=== PATIENT | female | born 1965 | race Caucasian/White ===

== ENCOUNTER 2018-02-27 10:47 | Day surgery (SDC) | END 2018-02-27 15:18 | disposition home or self-care (01) ==

== ENCOUNTER 2018-06-11 11:56 | Inpatient (IN) | payer BC ==
[2018-06-08 17:28] VITALS: BMI 23.4
[~2018-06-11] VITALS: Ht 160 cm; Wt 64.2 kg
[2018-06-11] VITALS (18 sets, daily range): BP systolic 98–122; BP diastolic 42–70; PULSE 66–90; RESP 13–21; Ht 160 cm; Wt 64.2 kg
[~2018-06-11 11:56] MED LIST: FER325 PO; LIDOCAINE 2% (SDV) 5 ML INJ ONE
--- NOTE | 2018-06-11 15:13 | PREAC ---
Date/Time of Note Date/Time of Note DATE: 06/11/18 TIME: 15:12 Anesthesia Eval and Record Evaluation Time Pre-Procedure Interview DATE: 06/11/18 TIME: 15:12 Age 53 Sex female NPO: 8 hrs Preoperative diagnosis fibroids Planned procedure SHAILESH Past Medical History Past Medical History: Includes Heme: Anemia Surgery & Anesthesia Issues No known issue Meds Anticoagulation: No Beta Chandrakant within 24 hr: No Reason Beta Chandrakant not given: Pt. not on B-Chandrakant Reported Medications Ferrous Sulfate* (Ferrous Sulfate*) 325 Mg Tabec, 325 MG PO BID, TAB 02/27/18 Current Medications Influenza Virus Vaccine Quadrival (Fluzone) 0.5 ml ONCE ONCE IM* ; Start 06/13/18 at 10:00; Stop 06/13/18 at 10:01 Meds reviewed: Yes Allergies Coded Allergies: No Known Allergy (Unverified , 06/11/18) Allergies Reviewed: Yes Labs/Studies Labs Reviewed: Reviewed by anesthesiologist Result Diagram: 06/11/18 1503 Laboratory Tests 06/11/18 15:03 test: Negative Studies: ECG Pre-procedure Exam Last vitals Vital Signs Date Temp Pulse Resp B/P (MAP) Pulse Ox O2 O2 Flow FiO2 Time Delivery Rate 06/11/18 98.8 90 16 122/59 100 Room Air 14:26 (80) Airway: Adequate mouth opening, Adequate thyromental dist Mallampati: Mallampati II Teeth: Normal Lung: Normal Heart: Normal ASA Physical Status ASA physical status: 2 Emergency: None Planned Anesthetic General/MAC: ETT Neuraxial: Epidural Nerve block: TAP (bilateral) Pre-operative Attestations Prior to commencing anesthesia and surgery, the patient was re-evaluated, there was verification of: *The patient's identity *The results of appropriate recent lab work and preoperative vital signs *The above evaluation not changing prior to induction *Anesthetic plan, risk benefits, alternative and complications discussed with patient/family; questions answered; patient/family understands, accepts and wishes to proceed. ANGY MONAHAN Jun 11, 2018 15:13
[2018-06-11] MEDS ORDERED: METOCLOPRAMIDE 10 MG INJ IV PRN (15:30)
[2018-06-11] MEDS ORDERED: ONDANSETRON 4 MG INJ IV PRN ×2 (15:30→18:00)
[2018-06-11] MEDS ORDERED: FENTAnyl 50 MCG/ML VIAL IV PRN ×2 (15:30)
[2018-06-11] MEDS ORDERED: MEPERIDINE 25 MG INJ IV PRN (15:30)
[2018-06-11] MEDS ORDERED: DIPHENHYDRAMINE 50 MG INJ IV PRN ×2 (15:30→18:00)
[2018-06-11] MEDS ORDERED: HYDROmorphONE 1 MG/5 ML IV SYRINGE IV PRN ×2 (15:30)
[2018-06-11] MEDS ORDERED: ALBUTEROL 0.083% (NEB) 2.5 MG/3 ML AMP HHN PRN (15:30)
--- NOTE | 2018-06-11 15:48 | HPN ---
Date/Time of Note Date/Time of Note DATE: 06/11/18 TIME: 15:48 Interval H&P Admission Note Pt. seen H&P reviewed: No system changes ANURAG ROSEN MD Jun 11, 2018 15:48
[2018-06-11] MEDS ORDERED: ROPIVACAINE 0.5 % 30 ML VIAL ONE (15:57)
[2018-06-11] MEDS ORDERED: FENTAnyl 50 MCG/ML VIAL ONE (15:57)
[2018-06-11] MEDS ORDERED: CEFAZOLIN 1 GM INJ ONE (17:35)
[2018-06-11] MEDS ORDERED: SUCCINYLCHOLINE CHLORIDE 100 MG/5 ML SYG IV ONE (17:35)
[2018-06-11] MEDS ORDERED: NEOSTIGMINE 10 MG INJ ONE (17:35)
[2018-06-11] MEDS ORDERED: GLYCOPYRROLATE 0.4 MG INJ ONE (17:35)
[2018-06-11] MEDS ORDERED: PROPOFOL 20 ML ONE (17:35)
[2018-06-11] MEDS ORDERED: ROCURONIUM 50 MG INJ ONE (17:35)
[2018-06-11] MEDS ORDERED: ACETAMINOPHEN 325 MG TAB PO PRN (18:00)
--- NOTE | 2018-06-11 18:06 | OPR ---
Date/Time of Note Date/Time of Note DATE: 06/11/18 TIME: 18:04 Operative Report Procedure Date: Jun 11, 2018 Preoperative Diagnosis 20 week size uterus Postoperative Diagnosis Same Operation/Procedure Performed Exploratory laparotomy, SHAILESH/BSO, resection of 20 cm pelvic mass Surgeon see signature line Upsetter James Whitaker MD Anesthesia Type: general Anesthesiologist: ANGY MONAHAN Estimated Blood Loss: 200 - 250 ml's Transfusion none Specimen uterus, cervix, ovaries Grafts/Implants none Complications none Pt Condition Post Procedure: stable Disposition: PACU Procedure Description See above ANURAG ROSEN MD Jun 11, 2018 18:06
[2018-06-11] MEDS: HYDROmorphONE 1 MG/5 ML IV SYRINGE IV PRN ×3 (18:24→18:36)
[2018-06-11] MEDS: HYDROCODONE/APAP (5/325) TAB PO PRN (18:44)
--- NOTE | 2018-06-11 18:49 | OPR ---
DATE OF OPERATION: 06/11/2018 PREOPERATIVE DIAGNOSES: A 20-week size pelvic mass. POSTOPERATIVE DIAGNOSES: A 20-week size pelvic mass with a 20-week size fibroid uterus. PROCEDURES: 1. Exploratory laparotomy. 2. Total abdominal hysterectomy with bilateral salpingo-oophorectomy. 3. Resection of 20-week size pelvic mass. SURGEON: Abhilash Trotter MD DROP COUNT ASSOCIATE: James Whitaker MD ANESTHESIA: General endotracheal. ANESTHESIOLOGIST: Hayder Ramos MD ESTIMATED BLOOD LOSS: About 200 mL. INTRAOPERATIVE FINDINGS: The patient has a large bulky uterus up to the umbilicus. It occupied the lower uterine segment and stuck in the pelvis. Ovaries are normal bilaterally. Intraoperative evaluation by pathology revealed multiple fibroid uterus, submucosal and intramural. HISTORY OF PRESENT ILLNESS: This is a 53-year-old white female with a long history of fibroid uterus, menorrhagia and anemia. Hemoglobin on admission was 8.3. The patient desires to remove the uterus and both tubes and ovaries. DESCRIPTION OF THE PROCEDURE: The patient was taken to the OR after adequate anesthesia after proper TAP block, prepped and draped in usual sterile fashion. Felton catheter was inserted by nursing staff. Vertical incision extended from suprapubic to the level above umbilicus, carried down to the fascia. Fascia was entered. Peritoneal cavity was entered. At this time due to the bulkiness of the uterus, I had extended incision above the umbilicus and the uterus was quite wide as well. Nevertheless, both the round ligament anchored using 0 Vicryl suture. Retroperitoneal space was opened to the pericolic gutter. Pararectal space was opened. Avascular space was opened. Both IP ligaments were then doubly clamped, cut and doubly suture ligated. This released the suspension of the uterus. Next, I then took the bladder flap down to pubocervical fascia. Again, the patient is really wide bulky uterus. Care was taken to dissect the ureter away laterally from uterine vessel. At this time, I then proceeded to clamp the uterine vessel all the way to the lower uterine segment and Pean clamp was used. This was double suture ligated. Next, the cardinal ligament was serially clamped, cut, suture ligated all the way down the uterosacral ligament. At the level of the uterosacral ligament due to the lack exposure, I amputated the uterus off the cervix and then I sent the uterus for pathology for evaluation. Once I can see better, the bowel was then packed away and cervix was grasped using Fernandez. At this time, the cardinal ligament was serially clamped, cut, suture ligated all the way down to the uterosacral ligament. Uterosacral ligament was clamped, cut, suture ligated. At this time, bladder flap was further taken down to vagina, clamped across vagina. Specimen was amputated off the vagina and the cervix and sent to pathology for evaluation. At this time, vaginal cuff was closed using 0 Vicryl suture in [id number] fashion. At this time the intraoperative evaluation by pathology revealed multiple fibroid uterus, intramural and submucosal. Next, the pelvis was irrigated and was hemostatic. At this time, I then removed the retractor. A Ernie drain was placed into the pelvic area, brought out the right lower quadrant, anchored to the skin. At this time, the instrument count, lap count were correct. We then proceeded to close the fascia using looped PDS in a mass having closure fashion. Subcutaneous tissue was irrigated. Skin was approximated using stainless steel staple. At the end of the case, urine was clear in the Felton bag. Dictated By: ABHILASH VELAZQUEZ/DADA Conf#: [id number] DID#: [id number] JACK
[2018-06-11] MEDS: D5-NS + KCL 20 MEQ 1,000 ML IV SCH (20:59)
[2018-06-11] MEDS: FAMOTIDINE 20 MG TAB PO SCH (21:00)
--- NOTE | 2018-06-11 22:19 | PAC ---
Date/Time of Note Date/Time of Note DATE: 06/11/18 TIME: 22:18 Post-Anesthesia Notes Post-Anesthesia Note Last documented vital signs Vital Signs Date Temp Pulse Resp B/P (MAP) Pulse Ox O2 O2 Flow FiO2 Time Delivery Rate 06/11/18 98.0 77 18 111/56 100 Nasal 2.0 20:20 (74) Cannula Activity: WNL Respiratory function: WNL Cardiovascular function: WNL Mental status: Baseline Pain reasonably controlled: Yes Hydration appropriate: Yes Nausea/Vomiting absent: Yes ANGY MONAHAN Jun 11, 2018 22:19
[2018-06-12 00:39] VITALS: BP 117/58; PULSE 74; RESP 18
[2018-06-12] MEDS: morphine 2 MG INJ IV PRN ×4 (02:29→10:20)
[2018-06-12] MEDS: D5-NS + KCL 20 MEQ 1,000 ML IV SCH ×3 (05:07→20:00)
[2018-06-12 05:21] VITALS: BP 109/57; PULSE 68; RESP 18
[2018-06-12 07:32] VITALS: BP 108/55; PULSE 72; RESP 19
[2018-06-12] MEDS: FAMOTIDINE 20 MG TAB PO SCH ×2 (09:14→20:41)
[2018-06-12] MEDS ORDERED: HYDROmorphONE 0.5 MG/0.5 ML SYG IV PRN (11:00)
[2018-06-12] MEDS: HYDROmorphONE 1 MG/ML SYG IV PRN ×4 (12:55→20:00)
[2018-06-12 15:08] VITALS: BP 119/62; PULSE 62; RESP 18
--- NOTE | 2018-06-12 19:00 | PN ---
Date/Time of Note Date/Time of Note DATE: 06/12/18 TIME: 18:58 Assessment/Plan VTE Prophylaxis Risk score (from Ns)>0 risk: 5 SCD applied (from [facility] [place] Yes SCD contraindicated: other Pharmacological prophylaxis: other Pharm contraindication: low risk/ambulating Lines/Catheters [facility] Type (from [facility]): Peripheral IV Central line still needed: No Urinary Cath still in place: No Assessment/Plan Assessment/Plan POD #1. clear liquid, ambulate Result Diagram: 06/12/1821 06/12/18 0921 Results 24hrs Laboratory Tests Test 06/12/18 04:36 06/12/18 07:50 06/12/18 09:21 Sodium Level 139 138 Potassium Level 4.2 4.1 Chloride Level 108 108 Carbon Dioxide Level 23 23 Anion Gap 8 7 Blood Urea Nitrogen 7 6 L Creatinine 0.54 0.55 Est Glomerular Filtrat Rate mL/min > 60 > 60 Glucose Level 148 137 Calcium Level 8.2 L 8.1 L Total Bilirubin 0.1 L Direct Bilirubin 0.00 Indirect Bilirubin 0.1 Aspartate Amino Transf (AST/SGOT) 24 Alanine Aminotransferase (ALT/SGPT) 27 Alkaline Phosphatase 41 L Total Protein 5.5 L Albumin 3.2 L Globulin 2.30 Albumin/Globulin Ratio 1.39 Lab Scanned Report REFERENCE LAB White Blood Count 10.7 # Red Blood Count 2.62 L Hemoglobin 7.1 L Hematocrit 23.4 L Mean Corpuscular Volume 89.3 Mean Corpuscular Hemoglobin 27.1 L Mean Corpuscular Hemoglobin Concent 30.3 L Red Cell Distribution Width 14.9 H Platelet Count 275 Mean Platelet Volume 10.7 H Immature Granulocytes % 0.400 Neutrophils % 80.5 H Lymphocytes % 8.6 L Monocytes % 10.2 Eosinophils % 0.0 Basophils % 0.3 Nucleated Red Blood Cells % 0.0 Immature Granulocytes # 0.040 H Neutrophils # 8.6 H Lymphocytes # 0.9 Monocytes # 1.1 H Eosinophils # 0.0 Basophils # 0.0 Nucleated Red Blood Cells # 0.0 Subjective 24 Hr Interval Summary Free Text/Dictation OK pain control, Hgb 7.2, good uO Exam/Review of Systems Exam Vitals Vital Signs Date Temp Pulse Resp B/P (MAP) Pulse Ox O2 O2 Flow FiO2 Time Delivery Rate 06/12/18 97.2 62 18 119/62 98 15:08 (81) 06/12/18 Nasal 2.0 05:21 Cannula Intake and Output 06/11/18 06/11/18 06/12/18 1515:00 23:00 07:00 IntakeIntake Total 2100 ml 1000 ml OutputOutput Total 750 ml 670 ml BalanceBalance 1350 ml 330 ml Gastrointestinal: soft Results Results 24hrs Laboratory Tests Test 06/12/18 04:36 06/12/18 07:50 06/12/18 09:21 Sodium Level 139 138 Potassium Level 4.2 4.1 Chloride Level 108 108 Carbon Dioxide Level 23 23 Anion Gap 8 7 Blood Urea Nitrogen 7 6 L Creatinine 0.54 0.55 Est Glomerular Filtrat Rate mL/min > 60 > 60 Glucose Level 148 137 Calcium Level 8.2 L 8.1 L Total Bilirubin 0.1 L Direct Bilirubin 0.00 Indirect Bilirubin 0.1 Aspartate Amino Transf (AST/SGOT) 24 Alanine Aminotransferase (ALT/SGPT) 27 Alkaline Phosphatase 41 L Total Protein 5.5 L Albumin 3.2 L Globulin 2.30 Albumin/Globulin Ratio 1.39 Lab Scanned Report REFERENCE LAB White Blood Count 10.7 # Red Blood Count 2.62 L Hemoglobin 7.1 L Hematocrit 23.4 L Mean Corpuscular Volume 89.3 Mean Corpuscular Hemoglobin 27.1 L Mean Corpuscular Hemoglobin Concent 30.3 L Red Cell Distribution Width 14.9 H Platelet Count 275 Mean Platelet Volume 10.7 H Immature Granulocytes % 0.400 Neutrophils % 80.5 H Lymphocytes % 8.6 L Monocytes % 10.2 Eosinophils % 0.0 Basophils % 0.3 Nucleated Red Blood Cells % 0.0 Immature Granulocytes # 0.040 H Neutrophils # 8.6 H Lymphocytes # 0.9 Monocytes # 1.1 H Eosinophils # 0.0 Basophils # 0.0 Nucleated Red Blood Cells # 0.0 Medications Medication Current Medications Influenza Virus Vaccine Quadrival (Fluzone) 0.5 ml ONCE ONCE IM* ; Start 06/13/18 at 10:00; Stop 06/13/18 at 10:01 Acetaminophen/ Hydrocodone Bitart ([place] (5/325)) 1 tab Q6H PRN PO PAIN LEVEL 6-10 Last administered on 06/11/18at 18:44; Admin Dose 1 TAB; Start 06/11/18 at 18:00 Acetaminophen (Tylenol Tab) 650 mg Q6H PRN PO MILD PAIN(1-3)OR ELEVATED TEMP; Start 06/11/18 at 18:00 Diphenhydramine HCl (Benadryl) 25 mg Q6H PRN IV ITCHING; Start 06/11/18 at 18:00 Ondansetron HCl (Zofran Inj) 4 mg Q6H PRN IV NAUSEA AND/OR VOMITING; Start 06/11/18 at 18:00 Famotidine (Pepcid) 20 mg BID PO Last administered on 06/12/18at 09:14; Admin Dose 20 MG; Start 06/11/18 at 21:00 Potassium Chloride/Dextrose/ Sod Cl 1,000 ml @ 125 mls/hr Q8H IV Last administered on 06/12/18at 12:54; Admin Dose 125 MLS/HR; Start 06/11/18 at 17:56 Hydromorphone HCl (Dilaudid) 0.5 mg Q2H PRN IV SEVERE PAIN LEVEL 7-10 Last administered on 06/12/18at 11:07; Admin Dose 0.5 MG; Start 06/12/18 at 11:00 Hydromorphone HCl (Dilaudid) 1 mg Q2H PRN IV SEVERE PAIN LEVEL 7-10 Last administered on 06/12/18at 17:35; Admin Dose 1 MG; Start 06/12/18 at 11:00 ANURAG ROSEN MD Jun 12, 2018 19:00
[2018-06-12 19:49] VITALS: BP 110/59; PULSE 69; RESP 18
[2018-06-13] MEDS: HYDROmorphONE 1 MG/ML SYG IV PRN ×6 (00:54→17:22)
[2018-06-13 02:05] VITALS: BP 100/60; PULSE 79; RESP 18
[2018-06-13] MEDS: D5-NS + KCL 20 MEQ 1,000 ML IV SCH ×2 (04:06→15:16)
[2018-06-13 07:38] VITALS: BP 130/66; PULSE 89; RESP 18
[2018-06-13] MEDS: FAMOTIDINE 20 MG TAB PO SCH ×2 (09:00→21:03)
[2018-06-13] MEDS ORDERED: ACETAMINOPHEN 325 MG TAB PO ONE (11:30)
[2018-06-13] MEDS ORDERED: DIPHENHYDRAMINE 50 MG CAP PO ONE (11:30)
[2018-06-13 19:30] VITALS: BP 132/70; PULSE 91; RESP 20
--- NOTE | 2018-06-13 20:45 | PN ---
Date/Time of Note Date/Time of Note DATE: 06/13/18 TIME: 20:43 Assessment/Plan VTE Prophylaxis Risk score (from Ns)>0 risk: 3 [place] [facility] [place] SCD contraindicated: low risk/ambulating, other Pharmacological prophylaxis: other Pharm contraindication: low risk/ambulating Lines/Catheters [facility]ter Type (from [facility]): Peripheral IV Central line still needed: No Urinary Cath still in place: No Assessment/Plan Hospital Course POD #2. Assessment/Plan Ambualate, check H/H in AM Result Diagram: 06/13/18 0443 06/13/18 0443 Results 24hrs Laboratory Tests Test 06/13/18 04:43 White Blood Count 8.4 # Red Blood Count 2.57 L Hemoglobin 6.9 *L Hematocrit 22.8 L Mean Corpuscular Volume 88.7 Mean Corpuscular Hemoglobin 26.8 L Mean Corpuscular Hemoglobin Concent 30.3 L Red Cell Distribution Width 15.4 H Platelet Count 280 Mean Platelet Volume 11.3 H Immature Granulocytes % 0.500 H Neutrophils % 81.0 H Lymphocytes % 6.9 L Monocytes % 11.1 H Eosinophils % 0.1 Basophils % 0.4 Nucleated Red Blood Cells % 0.0 Immature Granulocytes # 0.040 H Neutrophils # 6.8 Lymphocytes # 0.6 L Monocytes # 0.9 Eosinophils # 0.0 Basophils # 0.0 Nucleated Red Blood Cells # 0.0 Sodium Level 141 Potassium Level 3.9 Chloride Level 112 H Carbon Dioxide Level 24 Anion Gap 5 Blood Urea Nitrogen 3 L Creatinine 0.50 Est Glomerular Filtrat Rate mL/min > 60 Glucose Level 124 Calcium Level 8.5 Subjective 24 Hr Interval Summary Free Text/Dictation No flatus, Hgb 6.9. Received 1 u PRBC Exam/Review of Systems Exam Vitals Vital Signs Date Temp Pulse Resp B/P (MAP) Pulse Ox O2 O2 Flow FiO2 Time Delivery Rate 06/13/18 98.2 13:02 06/13/18 89 18 130/66 90 07:38 (87) 06/12/18 Nasal 2.0 05:21 Cannula Intake and Output 06/12/18 06/12/18 06/13/18 1515:00 23:00 07:00 IntakeIntake Total 820 ml 1100 ml OutputOutput Total 290 ml 200 ml BalanceBalance 530 ml 900 ml Gastrointestinal: soft Results Results 24hrs Laboratory Tests Test 06/13/18 04:43 White Blood Count 8.4 # Red Blood Count 2.57 L Hemoglobin 6.9 *L Hematocrit 22.8 L Mean Corpuscular Volume 88.7 Mean Corpuscular Hemoglobin 26.8 L Mean Corpuscular Hemoglobin Concent 30.3 L Red Cell Distribution Width 15.4 H Platelet Count 280 Mean Platelet Volume 11.3 H Immature Granulocytes % 0.500 H Neutrophils % 81.0 H Lymphocytes % 6.9 L Monocytes % 11.1 H Eosinophils % 0.1 Basophils % 0.4 Nucleated Red Blood Cells % 0.0 Immature Granulocytes # 0.040 H Neutrophils # 6.8 Lymphocytes # 0.6 L Monocytes # 0.9 Eosinophils # 0.0 Basophils # 0.0 Nucleated Red Blood Cells # 0.0 Sodium Level 141 Potassium Level 3.9 Chloride Level 112 H Carbon Dioxide Level 24 Anion Gap 5 Blood Urea Nitrogen 3 L Creatinine 0.50 Est Glomerular Filtrat Rate mL/min > 60 Glucose Level 124 Calcium Level 8.5 Medications Medication Current Medications Acetaminophen/ Hydrocodone Bitart ([place] (5/325)) 1 tab Q6H PRN PO PAIN LEVEL 6-10 Last administered on 06/11/18at 18:44; Admin Dose 1 TAB; Start 06/11/18 at 18:00 Acetaminophen (Tylenol Tab) 650 mg Q6H PRN PO MILD PAIN(1-3)OR ELEVATED TEMP; Start 06/11/18 at 18:00 Diphenhydramine HCl (Benadryl) 25 mg Q6H PRN IV ITCHING; Start 06/11/18 at 18:00 Ondansetron HCl (Zofran Inj) 4 mg Q6H PRN IV NAUSEA AND/OR VOMITING; Start 06/11/18 at 18:00 Famotidine (Pepcid) 20 mg BID PO Last administered on 06/12/18at 20:41; Admin Dose 20 MG; Start 06/11/18 at 21:00 Potassium Chloride/Dextrose/ Sod Cl 1,000 ml @ 100 mls/hr Q10H IV Last administered on 06/13/18at 15:16; Admin Dose 100 MLS/HR; Start 06/11/18 at 17:56 Hydromorphone HCl (Dilaudid) 0.5 mg Q2H PRN IV SEVERE PAIN LEVEL 7-10 Last administered on 06/12/18at 11:07; Admin Dose 0.5 MG; Start 06/12/18 at 11:00 Hydromorphone HCl (Dilaudid) 1 mg Q2H PRN IV SEVERE PAIN LEVEL 7-10 Last administered on 06/13/18 17:22; Admin Dose 1 MG; Start 06/12/18 at 11:00 ANURAG ROSEN MD Jun 13, 2018 20:45
[2018-06-13] MEDS: HYDROCODONE/APAP (5/325) TAB PO PRN (21:04)
[2018-06-14] MEDS: D5-NS + KCL 20 MEQ 1,000 ML IV SCH ×4 (00:06→23:33)
[2018-06-14 02:10] VITALS: BP 123/65; PULSE 90; RESP 20
[2018-06-14] MEDS: HYDROCODONE/APAP (5/325) TAB PO PRN ×2 (02:38→18:16)
[2018-06-14 08:51] VITALS: BP 134/71; PULSE 86; RESP 18
[2018-06-14] MEDS: HYDROmorphONE 1 MG/ML SYG IV PRN ×3 (08:58→23:58)
[2018-06-14] MEDS: FAMOTIDINE 20 MG TAB PO SCH ×2 (08:58→21:35)
[2018-06-14] MEDS ORDERED: POTASSIUM CHLORIDE (SR) 20 MEQ TAB PO STA (14:13)
[2018-06-14 15:09] VITALS: BP 138/75; PULSE 91; RESP 18
[2018-06-14 19:25] VITALS: BP 119/76; PULSE 94; RESP 20
[2018-06-15 02:00] VITALS: BP 138/72; PULSE 87; RESP 20
[2018-06-15] MEDS: HYDROCODONE/APAP (5/325) TAB PO PRN ×5 (03:34→21:30)
[2018-06-15] MEDS: D5-NS + KCL 20 MEQ 1,000 ML IV SCH ×2 (05:40→13:05)
[2018-06-15 08:01] VITALS: BP 144/80; PULSE 77; RESP 18
[2018-06-15] MEDS: FAMOTIDINE 20 MG TAB PO SCH ×2 (08:48→21:30)
[2018-06-15] MEDS ORDERED: HYDROCODONE/APAP (5/325) TAB PO PRN (10:00)
[2018-06-15 16:00] VITALS: BP 165/90
--- NOTE | 2018-06-15 18:19 | PN ---
Date/Time of Note Date/Time of Note DATE: 06/15/18 TIME: 18:18 Assessment/Plan VTE Prophylaxis Risk score (from Ns)>0 risk: 5 SCD applied ([place] [facility] [place] Yes SCD contraindicated: other Pharmacological prophylaxis: other Lines/Catheters IV [facility]atheter Type (from [facility]): Peripheral IV Urinary Cath still in place: No Assessment/Plan Hospital Course POD #3. Assessment/Plan Advance diet, heplock. D/C planning in 24-48 hrs Result Diagram: 06/15/1828 06/15/1828 Results 24hrs Laboratory Tests Test 06/15/18 08:28 White Blood Count 4.3 #L Red Blood Count 3.15 L Hemoglobin 8.2 L Hematocrit 26.8 L Mean Corpuscular Volume 85.1 Mean Corpuscular Hemoglobin 26.0 L Mean Corpuscular Hemoglobin Concent 30.6 L Red Cell Distribution Width 15.9 H Platelet Count 243 Mean Platelet Volume 11.6 H Immature Granulocytes % 0.200 Neutrophils % 62.8 Lymphocytes % 17.1 Monocytes % 13.8 H Eosinophils % 5.4 Basophils % 0.7 Nucleated Red Blood Cells % 0.0 Immature Granulocytes # 0.010 Neutrophils # 2.7 Lymphocytes # 0.7 L Monocytes # 0.6 Eosinophils # 0.2 Basophils # 0.0 Nucleated Red Blood Cells # 0.0 Sodium Level 141 Potassium Level 3.8 Chloride Level 108 Carbon Dioxide Level 26 Anion Gap 7 Blood Urea Nitrogen 3 L Creatinine 0.58 Est Glomerular Filtrat Rate mL/min > 60 Glucose Level 101 Calcium Level 8.7 Subjective 24 Hr Interval Summary Free Text/Dictation + flatus Exam/Review of Systems Exam Vitals Vital Signs Date Temp Pulse Resp B/P (MAP) Pulse Ox O2 O2 Flow FiO2 Time Delivery Rate 06/15/18 99.1 77 18 144/80 98 Room Air 08:01 (101) 06/12/18 2.0 05:21 Intake and Output 06/14/18 06/14/18 06/15/18 1414:59 22:59 06:59 IntakeIntake Total 520 ml 1780 ml 2140 ml OutputOutput Total 1030 ml 300 ml 80 ml BalanceBalance -510 ml 1480 ml 2060 ml Gastrointestinal: soft Results Results 24hrs Laboratory Tests Test 06/15/18 08:28 White Blood Count 4.3 #L Red Blood Count 3.15 L Hemoglobin 8.2 L Hematocrit 26.8 L Mean Corpuscular Volume 85.1 Mean Corpuscular Hemoglobin 26.0 L Mean Corpuscular Hemoglobin Concent 30.6 L Red Cell Distribution Width 15.9 H Platelet Count 243 Mean Platelet Volume 11.6 H Immature Granulocytes % 0.200 Neutrophils % 62.8 Lymphocytes % 17.1 Monocytes % 13.8 H Eosinophils % 5.4 Basophils % 0.7 Nucleated Red Blood Cells % 0.0 Immature Granulocytes # 0.010 Neutrophils # 2.7 Lymphocytes # 0.7 L Monocytes # 0.6 Eosinophils # 0.2 Basophils # 0.0 Nucleated Red Blood Cells # 0.0 Sodium Level 141 Potassium Level 3.8 Chloride Level 108 Carbon Dioxide Level 26 Anion Gap 7 Blood Urea Nitrogen 3 L Creatinine 0.58 Est Glomerular Filtrat Rate mL/min > 60 Glucose Level 101 Calcium Level 8.7 Medications Medication Current Medications Acetaminophen (Tylenol Tab) 650 mg Q6H PRN PO MILD PAIN(1-3)OR ELEVATED TEMP; Start 06/11/18 at 18:00 Diphenhydramine HCl (Benadryl) 25 mg Q6H PRN IV ITCHING; Start 06/11/18 at 18:00 Ondansetron HCl (Zofran Inj) 4 mg Q6H PRN IV NAUSEA AND/OR VOMITING; Start 06/11/18 at 18:00 Famotidine (Pepcid) 20 mg BID PO Last administered on 06/15/18 08:48; Admin Dose 20 MG; Start 06/11/18 at 21:00 Hydromorphone HCl (Dilaudid) 0.5 mg Q2H PRN IV SEVERE PAIN LEVEL 7-10 Last administered on 06/12/18at 11:07; Admin Dose 0.5 MG; Start 06/12/18 at 11:00 Hydromorphone HCl (Dilaudid) 1 mg Q2H PRN IV SEVERE PAIN LEVEL 7-10 Last administered on 06/14/18at 23:58; Admin Dose 1 MG; Start 06/12/18 at 11:00 Acetaminophen/ Hydrocodone Bitart ([place] (5/325)) 1 tab Q4H PRN PO PAIN LEVEL 6-10 Last administered on 06/15/18 16:50; Admin Dose 1 TAB; Start 3/8/19 at 08:00 ANURAG ROSEN MD Jun 15, 2018 18:19
[2018-06-15 19:40] VITALS: BP 150/73; PULSE 71; RESP 20
[2018-06-16] MEDS: HYDROCODONE/APAP (5/325) TAB PO PRN ×4 (01:18→22:40)
[2018-06-16 08:35] VITALS: BP 131/69; PULSE 70; RESP 20
[2018-06-16] MEDS: FAMOTIDINE 20 MG TAB PO SCH ×2 (08:56→20:47)
--- NOTE | 2018-06-16 10:21 | PN ---
Date/Time of Note Date/Time of Note DATE: 06/16/18 TIME: 10:20 Assessment/Plan VTE Prophylaxis Risk score (from Nsg)>0 risk: 3 SCD applied (from [facility]): Yes SCD contraindicated: low risk/ambulating Pharmacological prophylaxis: other Lines/Catheters IV Catheter Type (from [facility]): Saline Lock Central line still needed: No Urinary Cath still in place: No Assessment/Plan Hospital Course POD #4. Assessment/Plan Pain control. D/C planning for tomorrow Result Diagram: 06/16/185 06/16/185 Results 24hrs Laboratory Tests Test 06/16/18 04:35 White Blood Count 4.8 Red Blood Count 3.23 L Hemoglobin 8.5 L Hematocrit 27.1 L Mean Corpuscular Volume 83.9 Mean Corpuscular Hemoglobin 26.3 L Mean Corpuscular Hemoglobin Concent 31.4 L Red Cell Distribution Width 15.8 H Platelet Count 271 Mean Platelet Volume 11.6 H Immature Granulocytes % 0.200 Neutrophils % 56.2 Lymphocytes % 22.1 Monocytes % 14.0 H Eosinophils % 6.5 Basophils % 1.0 Nucleated Red Blood Cells % 0.0 Immature Granulocytes # 0.010 Neutrophils # 2.7 Lymphocytes # 1.1 Monocytes # 0.7 Eosinophils # 0.3 Basophils # 0.1 Nucleated Red Blood Cells # 0.0 Sodium Level 140 Potassium Level 3.6 Chloride Level 104 Carbon Dioxide Level 27 Anion Gap 9 Blood Urea Nitrogen 5 L Creatinine 0.65 Est Glomerular Filtrat Rate mL/min > 60 Glucose Level 97 Calcium Level 9.1 Subjective 24 Hr Interval Summary Free Text/Dictation c/o pain Exam/Review of Systems Exam Vitals Vital Signs Date Temp Pulse Resp B/P (MAP) Pulse Ox O2 O2 Flow FiO2 Time Delivery Rate 06/16/18 98.1 70 20 131/69 99 Room Air 08:35 (89) Intake and Output 06/15/18 06/15/18 06/16/18 1515:00 23:00 07:00 IntakeIntake Total 1000 ml 1280 ml 640 ml OutputOutput Total 50 ml 345 ml BalanceBalance 1000 ml 1230 ml 295 ml Gastrointestinal: soft Results Results 24hrs Laboratory Tests Test 06/16/18 04:35 White Blood Count 4.8 Red Blood Count 3.23 L Hemoglobin 8.5 L Hematocrit 27.1 L Mean Corpuscular Volume 83.9 Mean Corpuscular Hemoglobin 26.3 L Mean Corpuscular Hemoglobin Concent 31.4 L Red Cell Distribution Width 15.8 H Platelet Count 271 Mean Platelet Volume 11.6 H Immature Granulocytes % 0.200 Neutrophils % 56.2 Lymphocytes % 22.1 Monocytes % 14.0 H Eosinophils % 6.5 Basophils % 1.0 Nucleated Red Blood Cells % 0.0 Immature Granulocytes # 0.010 Neutrophils # 2.7 Lymphocytes # 1.1 Monocytes # 0.7 Eosinophils # 0.3 Basophils # 0.1 Nucleated Red Blood Cells # 0.0 Sodium Level 140 Potassium Level 3.6 Chloride Level 104 Carbon Dioxide Level 27 Anion Gap 9 Blood Urea Nitrogen 5 L Creatinine 0.65 Est Glomerular Filtrat Rate mL/min > 60 Glucose Level 97 Calcium Level 9.1 Medications Medication Current Medications Acetaminophen (Tylenol Tab) 650 mg Q6H PRN PO MILD PAIN(1-3)OR ELEVATED TEMP; Start 06/11/18 at 18:00 Diphenhydramine HCl (Benadryl) 25 mg Q6H PRN IV ITCHING; Start 06/11/18 at 18:00 Ondansetron HCl (Zofran Inj) 4 mg Q6H PRN IV NAUSEA AND/OR VOMITING; Start 06/11/18 at 18:00 Famotidine (Pepcid) 20 mg BID PO Last administered on 06/16/18 08:56; Admin Dose 20 MG; Start 06/11/18 at 21:00 Hydromorphone HCl (Dilaudid) 0.5 mg Q2H PRN IV SEVERE PAIN LEVEL 7-10 Last administered on 06/12/18 11:07; Admin Dose 0.5 MG; Start 06/12/18 at 11:00 Hydromorphone HCl (Dilaudid) 1 mg Q2H PRN IV SEVERE PAIN LEVEL 7-10 Last administered on 06/14/18 23:58; Admin Dose 1 MG; Start 06/12/18 at 11:00 Acetaminophen/ Hydrocodone Bitart ([place] (5/325)) 1 tab Q4H PRN PO PAIN LEVEL 6-10 Last administered on 06/16/18 07:29; Admin Dose 1 TAB; Start 06/15/18 at 08:00 ANURAG ROSEN MD Jun 16, 2018 10:21
[2018-06-16 14:59] VITALS: BP 141/66; PULSE 72; RESP 16
[2018-06-16 15:03] VITALS: BP 135/77; PULSE 75; RESP 18
[2018-06-16 19:35] VITALS: BP 129/73; PULSE 73; RESP 18
[2018-06-17 02:25] VITALS: BP 124/69; PULSE 76; RESP 18
[2018-06-17 07:55] VITALS: BP 123/71; PULSE 67; RESP 17
[2018-06-17] MEDS: FAMOTIDINE 20 MG TAB PO SCH (09:23)
[2018-06-17] MEDS: HYDROCODONE/APAP (5/325) TAB PO PRN (11:27)
--- NOTE | 2018-06-17 12:11 | PD.PPDC ---
STORE SPECIALIST Discharge Instruction Condition [id number] Patient Condition: Xuauw1u Good Diet Avtbd3Ch Diet: [id number] Resume Regular Diet Activity/Restrictions [id number] Activity: [id number] Normal Activity [id number] Restrictions: [id number] Nothing in the Vagina No [place] Wound/Drain Care Instructions [id number] Wound/Drain Care Instructions: [id number] Keep clean and dry Follow-up Follow-up with Physician: 1, Week/Weeks Return to clinic for [id number] [employer] BUSSER Instructions: [id number] Fever greater than 101 Worsening abdominal pain Unable to tolerate diet [id number] Surgical Instructions: [id number] Incisional Drainage ANURAG ROSEN MD Jun 17, 2018 12:11
--- NOTE | 2018-06-17 12:14 | DS ---
Date/Time of Note Date/Time of Note DATE: 06/17/18 TIME: 12:13 Discharge Summary Admission/Discharge Info Admit Date/Time Jun 11, 2018 at 13:25 Discharge Date/Time June 17, 2018 Discharge Diagnosis Uterine mass Patient Condition: Good Procedures SHAILESH, BSO Hospital Course Tolerated procedure, post op pain control issues, slowly resolved. Home Meds Reported Medications Ferrous Sulfate* (Ferrous Sulfate*) 325 Mg Tabec, 325 MG PO BID, TAB 02/27/18 Follow-up Plan See me in 1 week Primary Care Provider Angel Turner Pending Labs Laboratory Tests Test 06/17/18 04:38 White Blood Count 5.3 10^3/ul (4.8-10.8) Red Blood Count 3.83 10^6/ul (4.20-5.40) Hemoglobin 9.8 g/dl (12.0-16.0) Hematocrit 31.7 % (37.0-47.0) Mean Corpuscular Volume 82.8 fl (82.0-101.0) Mean Corpuscular Hemoglobin 25.6 pg (29.0-33.0) Mean Corpuscular Hemoglobin Concent 30.9 g/dl (32.0-37.0) Red Cell Distribution Width 15.9 % (11.5-14.5) Platelet Count 320 10^3/UL (140-415) Mean Platelet Volume 11.7 fl (7.4-10.4) Immature Granulocytes % 0.400 % (0.001-0.429) Neutrophils % 59.0 % (39.0-77.0) Lymphocytes % 22.2 % (15.0-51.0) Monocytes % 11.2 % (0.0-11.0) Eosinophils % 6.3 % (0.0-7.0) Basophils % 0.9 % (0.0-2.0) Nucleated Red Blood Cells % 0.0 /100WBC (0.0-0.0) Immature Granulocytes # 0.020 10^3/ul (0.0-0.031) Neutrophils # 3.1 10^3/ul (1.6-7.5) Lymphocytes # 1.2 10^3/ul (0.8-2.9) Monocytes # 0.6 10^3/ul (0.3-0.9) Eosinophils # 0.3 10^3/ul (0.0-0.5) Basophils # 0.1 10^3/ul (0.0-0.1) Nucleated Red Blood Cells # 0.0 10^3/ul (0.0-0.0) Sodium Level 140 mmol/L (135-144) Potassium Level 4.1 mmol/L (3.5-5.1) Chloride Level 103 mmol/L (97-110) Carbon Dioxide Level 28 mmol/L (21-31) Anion Gap 9 (5-13) Blood Urea Nitrogen 7 mg/dl (7-20) Creatinine 0.60 mg/dl (0.44-1.00) Est Glomerular Filtrat Rate mL/min > 60 mL/min (>60) Glucose Level 99 mg/dl (70-220) Calcium Level 9.6 mg/dl (8.4-10.2) ANURAG ROSEN MD Jun 17, 2018 12:14
== END 2018-06-17 16:00 | disposition home or self-care (01) | DRG 743 ==
LOC: REC 13:25 → MS1 19:56
PROVIDERS: ADMIT Obstetrics & Gynecology Gynecologic Oncology; ATTEND Obstetrics & Gynecology Gynecologic Oncology
PROC: 0UT20ZZ Resection of Bilateral Ovaries, Open Approach (ICD-10-PCS; 2018-06-11)
PROC: 0UT70ZZ Resection of Bilateral Fallopian Tubes, Open Approach (ICD-10-PCS; 2018-06-11)
PROC: 0UT90ZZ Resection of Uterus, Open Approach (ICD-10-PCS; principal; 2018-06-11 16:00)
DX: D25.1 Intramural leiomyoma of uterus (principal); D25.0 Submucous leiomyoma of uterus; R19.00 Intra-abdominal and pelvic swelling, mass and lump, unspecified site; D64.9 Anemia, unspecified
CPT/HCPCS: 36430; 80048; 80053; 84703; 85014; 85018; 85025; 86850; 86900; 86901; 86920; 88305; 90686; J0690; J1170; J2175; J2270; J2405; J2710; J2795; J3010; J3480; P9016